=== PATIENT | female | born 1960 | race Caucasian/White ===

== ENCOUNTER 2021-08-18 12:24 | Emergency (ER) | payer MEDICARE, OTHER, SELFPAY ==
[2021-08-18 12:52] VITALS: BP 136/72; PULSE 91; RESP 20; TEMP 36.7; O2SAT 99
--- NOTE | 2021-08-18 14:21 | ED.URI ---
HPI - URI/Sore Throat General Chief Complaint: Upper Respiratory Infection Stated Complaint: Bilateral Ear Pain,Eye Irritation,Cough,Sore Throa Source: patient and RN notes reviewed Limitations: no limitations History of Present Illness HPI Narrative: The vaccinated patient, a nondrinker/non-smoker with lung disease, presents with congestion or cough. Patient states she has 1/2-week history of myalgias , infraorbital/maxillary sinus headache, cough, ear fullness, mild hoarseness and scratchy throat. No fever, wheeze; no loss of taste/smell, calf pain/edema, precordial or other CP, vomiting/diarrhea, S OB. Related Data Home Medications Medication Instructions Recorded Confirmed albuterol sulfate 1.25 mg INHALATION Q4H 08/18/21 08/18/21 albuterol sulfate [ProAir HFA] 2 puff INHALATION QID 08/18/21 08/18/21 calcium-magnesium 1 tablet PO DAILY 08/18/21 08/18/21 cetirizine [Zyrtec] 10 mg PO DAILY 08/18/21 08/18/21 cholecalciferol (vitamin D3) 125 mcg PO DAILY 08/18/21 08/18/21 [Vitamin D3] fluticasone propionate [Flonase] 2 spray INTRANASAL DAILY 08/18/21 08/18/21 fluticasone propionate [Flovent 2 puff INHALATION BID 08/18/21 08/18/21 HFA] levothyroxine 88 mcg PO DAILY 08/18/21 08/18/21 montelukast [Singulair] 10 mg PO DAILY 08/18/21 08/18/21 vnarbrtuzpzp-[id number]-imvt-FA-vit K 1 tablet PO DAILY 08/18/21 08/18/21 [Adults Multivitamin] omeprazole 20 mg PO DAILY 08/18/21 08/18/21 ondansetron HCl [Zofran] 4 mg PO Q6H 08/18/21 08/18/21 ropinirole [Requip] 1 mg PO DAILY 08/18/21 08/18/21 tramadol 100 mg PO Q4H 08/18/21 08/18/21 Allergies Allergy/AdvReac Type Severity Reaction Status Date / Time adhesive Allergy Verified 08/18/21 13:51 amoxicillin [From Augmentin] Allergy Verified 08/18/21 13:51 cephalexin [From Keflex] Allergy Verified 08/18/21 13:51 ciprofloxacin [From Cipro] Allergy Verified 08/18/21 13:51 clavulanic acid Allergy Verified 08/18/21 13:51 [From Augmentin] latex Allergy Verified 08/18/21 13:51 Sulfa (Sulfonamide Allergy Verified 08/18/21 13:51 Antibiotics) Review of Systems Review of Systems: General/Constitutional: No weight loss,fever Eyes: N0: Redness,discharge Ears/Nose/Throat: No: Epistaxis,ear discharge Respiratory: Denies: Hemoptysis Gastrointestinal: No Vomiting, Bleeding-rectal Skin: No Lumps, eruption Neurologic: No Focal Weakness,Sz Hematologic: Denies: Petechiae/Purpura Psychiatric: No: Suicida ideationl All Other Systems: Reviewed and Negative PMFSH Comments At time of signature, agree with nursing past medical, surgical, social and family history. There is no relevant family history pertinent to the presenting complaint Exam Narrative: General Appearance: Well appearing, Well nourished EYE: PERRLA, Conjunctiva clear Ears: Auditory canal normal, TM normal Nose: Rhinorrhea, Mucousal erythema Mouth/Throat: MM moist, Uvula midline, Pharyngeal erythema Neck: Supple, No adenopathy Respiratory: No respiratory distress, Breath sounds equal, Clear to auscultation Cardiovascular: RRR, No JVD Musculoskeletal: Non tender, Normal strength Skin: Warm, Dry Neurological: A&O x3, CN II-XII intact Psychiatric: Normal mood, Normal affect Course Vital Signs Vital signs: Vital Signs Temperature 98.0 F 08/18/21 12:52 Pulse Rate 91 08/18/21 12:52 Respiratory Rate 20 08/18/21 12:52 Blood Pressure 136/72 08/18/21 12:52 Pulse Oximetry 99 08/18/21 12:52 Temperature 98.0 F 08/18/21 12:52 Pulse Rate 91 08/18/21 12:52 Respiratory Rate 20 08/18/21 12:52 Blood Pressure 136/72 08/18/21 12:52 Pulse Oximetry 99 08/18/21 12:52 Discharge Plan Discharge Clinical Impression: Sinus headache Patient Disposition: Home, Self-Care Condition: Stable Instructions: Acute Bronchitis (ED) Prescriptions: New codeine-guaifenesin 10-100 mg/5 mL liquid 7.5 ml PO BID PRN (Reason: cough) Qty: 118 RF: 0 benzonatate 100 mg caps
[2021-08-19 02:32] LABS: SARS-CoV-2 RNA PCR Negative
== END 2021-08-18 14:36 | disposition home or self-care (01) ==
PROVIDERS: Emergency Provider Emergency Medicine; PCP Physician Assistant
DX: R51.9 Headache, unspecified (principal); Z20.822 Contact with and (suspected) exposure to COVID-19; G25.81 Restless legs syndrome; Z86.718 Personal history of other venous thrombosis and embolism; K21.9 Gastro-esophageal reflux disease without esophagitis; Z96.653 Presence of artificial knee joint, bilateral; E03.9 Hypothyroidism, unspecified
CPT/HCPCS: 99203; C9803; G0463; U0003; U0005

== ENCOUNTER 2022-01-31 10:54 | Emergency (ER) | payer MEDICARE, OTHER, SELFPAY ==
--- NOTE | 2022-01-31 11:02 | ED.URI ---
HPI - URI/Sore Throat General Chief Complaint: Upper Respiratory Infection Stated Complaint: cough,fever,nasal congestion Time Seen by Provider: 01/31/22 11:21 Source: patient and RN notes reviewed Mode of arrival: ambulatory Limitations: no limitations History of Present Illness HPI Narrative: 61-year-old female presents with concern for 10-day history of cough, chest congestion, sinus pressure, sinus drainage, fever. Reports history of chronic bronchitis. Reports she has been using Flonase, Flovent and a rescue inhaler. She reports exertional dyspnea. She denies nausea, vomiting, diarrhea. MD elicited complaint: cough and nasal congestion Related Data Home Medications Medication Instructions Recorded Confirmed albuterol sulfate [ProAir HFA] 2 inh INHALATION QID 01/31/22 01/31/22 atorvastatin [Lipitor] 10 mg PO DAILY 01/31/22 01/31/22 calcium carbonate [Calcium 600] 1 mg BID 01/31/22 01/31/22 cetirizine [Zyrtec] 10 mg PO DAILY 01/31/22 01/31/22 cholecalciferol (vitamin D3) 125 mcg DIRECTED 01/31/22 01/31/22 fluticasone propionate [Flonase] 1 spray INTRANASAL BID 01/31/22 01/31/22 fluticasone propionate [Flovent 2 puff INHALATION Q12H 01/31/22 01/31/22 HFA] ibuprofen [Motrin] 800 mg PO TID 01/31/22 01/31/22 levothyroxine 88 mcg PO DAILY 01/31/22 01/31/22 magnesium oxide 40 mg DAILY 01/31/22 01/31/22 montelukast [Singulair] 10 mg PO DAILY 01/31/22 01/31/22 omeprazole [Prilosec] 20 mg PO DAILY 01/31/22 01/31/22 ondansetron HCl [Zofran] 4 mg PO Q6H 01/31/22 01/31/22 ropinirole 1 mg PO DAILY 01/31/22 01/31/22 tolterodine [Detrol LA] 4 mg PO DAILY 01/31/22 01/31/22 tramadol [Ultram] 50 mg PO Q6H 01/31/22 01/31/22 Allergies Allergy/AdvReac Type Severity Reaction Status Date / Time adhesive Allergy Verified 08/18/21 13:51 amoxicillin [From Augmentin] Allergy Verified 08/18/21 13:51 cephalexin [From Keflex] Allergy Verified 08/18/21 13:51 ciprofloxacin [From Cipro] Allergy Verified 08/18/21 13:51 clavulanic acid Allergy Verified 08/18/21 13:51 [From Augmentin] latex Allergy Verified 08/18/21 13:51 Sulfa (Sulfonamide Allergy Verified 08/18/21 13:51 Antibiotics) Review of Systems Review of Systems: CONSTITUTIONAL: Reports malaise, low-grade fever. EYES: Denies visual changes, redness, or discharge. ENT: Reports rhinorrhea, congestion, sinus pain. Denies otalgia and sore throat. CARDIOVASCULAR: Denies chest pain, palpitations, or edema. RESPIRATORY: Reports cough, exertional dyspnea. GASTROINTESTINAL: Denies abdominal pain, nausea, vomiting, diarrhea SKIN: Denies rash or itching. MUSCULOSKELETAL: Denies myalgia. NEUROLOGIC: Denies headache. All systems reviewed & are unremarkable except as noted in HPI and below PMFSH Comments At time of signature, agree with nursing past medical, surgical, social and family history. There is no relevant family history pertinent to the presenting complaint Exam Narrative: GENERAL: Well-appearing, well-nourished, and in no acute distress. HEAD: Normocephalic EYES: PERRLA, conjunctivae clear ENT: Nares clear, turbinates edematous and erythematous, clear discharge. Mucous membranes moist. TM pearly colon with sharp light reflex bilaterally; no tragal tenderness. Oropharynx not erythematous without lesions. Tonsils not enlarged and without exudate, no drooling, no hoarseness, no trismus, uvula midline. NECK: Supple. No lymphadenopathy CHEST: Clear to auscultation, breath sounds equal. No wheezing, rhonchi, rales, or stridor. No respiratory distress, speaks in full sentences. Cough noted HEART: Regular rate and rhythm. No murmur heard. SKIN: Warm, dry, no rash. NEURO: Alert and oriented x3. PSYCH: Normal mood and affect Course Course Emergency Course: Patient is aware of diagnosis, understands and agrees to treatment plan. Anticipatory guidance given. Patient agrees to follow-up as directed and is aware of reasons to seek care at the emergency department. Portions o
[2022-01-31 11:05] VITALS: BP 151/105; PULSE 104; RESP 20; TEMP 36.7; O2SAT 97
== END 2022-01-31 11:39 | disposition home or self-care (01) ==
PROVIDERS: Emergency Provider Nurse Practitioner; PCP Physician Assistant
DX: J32.9 Chronic sinusitis, unspecified (principal); J40 Bronchitis, not specified as acute or chronic; Z86.718 Personal history of other venous thrombosis and embolism; K21.9 Gastro-esophageal reflux disease without esophagitis; Z96.653 Presence of artificial knee joint, bilateral; E03.9 Hypothyroidism, unspecified
CPT/HCPCS: 99213; G0463